=== PATIENT | male | born 1970 | race Caucasian/White ===

== ENCOUNTER → 2017-11-21 | Outpatient (CLI) | payer OTHER ==
--- NOTE | 2017-11-21 17:41 | US ---
EXAMINATION TYPE: US venous doppler duplex LE RT DATE OF EXAM: 11/21/2017 5:30 PM COMPARISON: NONE CLINICAL HISTORY: M25.561 Right knee pain, I80.9 Phlebitis and. Right knee and calf pain SIDE PERFORMED: Right TECHNIQUE: The lower extremity deep venous system is examined utilizing real time linear array sonog isabel with graded compression, doppler sonography and color-flow sonography. VESSELS IMAGED: External Iliac Vein (EIV) Common Femoral Vein Deep Femoral Vein Greater Saphenous Vein * Femoral Vein Popliteal Vein Small Saphenous Vein * Proximal Calf Veins (* superficial vessels) Right Leg: Appears negative for DVT IMPRESSION: Negative exam. No evidence of deep venous thrombosis in the right leg.
== END | disposition home or self-care (01) ==
LOC: RADUSMAIN 16:34
PROVIDERS: ATTEND Orthopaedic Surgery
DX: I80.9 Phlebitis and thrombophlebitis of unspecified site (principal); M25.561 Pain in right knee; M25.461 Effusion, right knee; M17.11 Unilateral primary osteoarthritis, right knee; S83.241A Other tear of medial meniscus, current injury, right knee, initial encounter; M94.261 Chondromalacia, right knee

== ENCOUNTER 2018-02-16 12:37 | Day surgery (SDC) | payer OTHER ==
[2018-02-12 11:23] VITALS: BMI 42.7
[~2018-02-16 12:37] MED LIST: ACETAMINOPHEN TAB 500 MG TAB PO ONE; DEXAMETHASONE SOD PHOSPHATE 10 MG/ML 1 ML VIAL IV ONE; HYDROmorphone 0.5 MG/0.5 ML SYRINGE IVP PRN; LACTATED RINGERS 1,000 ML IV SCH; LIDOCAINE 1% 20 ML VIAL (10MG/ML) FOR IV START INTRADERMA PRN; ONDANSETRON 4 MG/2 ML VIAL IVP ONE; SCOPOLAMINE 1.5MG/72HR PATCH TRANSDERM ONE; TRANEXAMIC ACID 1,000 MG in SODIUM CHLORIDE 0.9% 50 ML IVPB ONE
[2018-02-16] MEDS ORDERED: MIDAZOLAM 2 MG/2 ML VIAL ONE (15:43)
[2018-02-16] MEDS ORDERED: TRANEXAMIC ACID 1,000 MG/10 ML VIAL ONE (15:43)
[2018-02-16] MEDS ORDERED: KETOROLAC 30 MG/ML 1 ML VIAL ONE (15:43)
[2018-02-16] MEDS ORDERED: fentaNYL (PF) 50 MCG/ML 2 ML AMP ONE (15:43)
[2018-02-16] MEDS ORDERED: PROPOFOL 10 MG/ML 20 ML VIAL IV ONE (15:43)
[2018-02-16] MEDS ORDERED: LIDOCAINE 1% INJ 10MG/ML (20 ML MDV) ONE (15:43)
[2018-02-16] MEDS ORDERED: HYDROmorphone (PF) 1 MG/ML ONE (15:43)
[2018-02-16] MEDS ORDERED: SUCCINYLCHOLINE CHLORIDE 100 MG/5 ML SYR IV ONE (15:43)
[2018-02-16] MEDS ORDERED: SODIUM CHLORIDE 0.9% 100 ML BAG ONE (15:43)
[2018-02-16] MEDS ORDERED: LACTATED RINGERS 1,000 ML IV ONE (17:10)
--- NOTE | 2018-02-16 17:52 | P.OP ---
Date of Procedure: 02/16/18 Procedure(s) Performed: PREOPERATIVE DIAGNOSES: 1. Right knee anterior cruciate ligament tear; 2. Medial meniscus tear, bucket handle POSTOPERATIVE DIAGNOSES: 1. Right knee anterior cruciate ligament tear; 2. Medial meniscus tear, chronic bucket handle; 3. 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 Right knee arthroscopically-assisted anterior cruciate ligament reconstruction with soft tissue allograft utilizing Graftlink technique 2. Right knee arthroscopic partial medial meniscectomy (40%) ANESTHESIA: quality assurance: Shoshana Retana PA-C (assistance with: patient positioning, retraction, graft prep, camera operation, reconstruction, irrigation, closure, dressing) COMPLICATIONS: None ESTIMATED BLOOD LOSS: Less than 20 cc TOURNIQUET: 75 minutes DISPOSITION: To post-anesthesia care unit INDICATIONS: Caleb is a 48 year old male with a history of right knee ACL tear and medial meniscus tear. We have discussed different approaches to ACL reconstruction and the decision is for soft tissue allograft reconstruction with possible meniscal repair versus debridement. I have explained the details of this surgery thoroughly and also explained the potential risks and complications, including the relative risks of graft failure. Other risks are inclusive of, but not limited to: bleeding, infection, scarring, discomfort, blood vessel and nerve damage, stiffness, weakness, need for further surgery, failure to relieve symptoms, persistence or worsening of problems, , and other risks. The patient and parents are aware of these risks and agree to proceed with surgery. The consent form has been signed. PROCEDURE: After appropriate consent was obtained, the patient was taken to the operating room and placed supine on the operating table. General anesthesia was initiated. The knee was examined under anesthesia. Medial collateral, lateral collateral and posterior cruciate ligaments were all intact. There was positive pivot shift of 2+ and 4+ mm anterior translation with both Wu and anterior drawer. Full range of motion was noted without crepitus. No effusion or soft tissue swelling was noted. Prepping and draping of the left knee was performed in the usual sterile fashion using ChloraPrep. Care was taken that all pressure points were adequately padded. Leg perez and pneumotourniquet were used. Time-out was called according to [facility] [place] standards, confirming patient identity, surgical procedure, side, and antibiotic administration. Graft preparation took place on the [employer] graft preparation station. Preparation of the graft took place uneventfully. The graft used was a pre- sutured Graftlink allograft. The sutures for passage and fixation of the graft were placed. The graft was then set to 20 pounds of tension on the graft prep board and covered with a sterile saline soaked gauze pad. During the preparation of the graft, arthroscopy commenced. The surgical portals were placed directly next to the patellar tendon medially and laterally. Camera and instruments were carefully inserted into the knee and arthroscopy was performed. The patellofemoral joint showed grade II degenerative changes. No loose bodies in the medial or lateral gutters, quad tendon normal. No plica. Lateral compartment showed normal hyaline cartilage without defect. Meniscus was normal to visualization and probing. No loose bodies were seen within the lateral compartment. Medial compartment was then examined. Obvious chronic-appearing bucket handle meniscus tear with displacement into the notch was seen. The meniscal fragment was not able to be easily reduced indicating chronicity of the tear and the quality of the material itself was poor. Therefore, partial meniscectomy was performed, removing approximately 4 to percent of the meniscus in this step. The remaining meniscal rim was inspected and found to have a horizontal cleavage type tear which appeared stable and so no further resection was performed. Hyaline cartilage of the medial compartment was mildly degenerated and minor chondroplasty was performed using a shaver. The notch of the knee was then inspected. The patient had a complete tear of the ACL at the femoral attachment with no significant remnant remaining. Scar tissue within this region was debrided away with care to avoid injuring the PCL. The notch in this patient was somewhat narrow, and so it was expanded in the lateral direction with a geoff. Only 3 mm of bone was resected from the lateral portion of the notch, just enough to get the guide in.. The soft tissue on the lateral side of the notch was cleared as necessary using a shaver. Next, the femoral socket was created using the [employer] flip cutter guide. The guide was adjusted through the anterolateral portal after careful measurement of the anterior to posterior condylar distance on the lateral notch. A spot approximately between 40 and 50% of this length was chosen and the guide was moved superiorly only as much as to allow for a 2.5 mm back wall. Incision was created on the lateral side of the thigh over the IT band and the guide was placed against the bone. Guide position was adjusted so that there was 20 of anterior elevation in the coronal plane of the femur and 60 in the sagittal plane. Drilling was then performed using the flip cutter drill pin into the knee at the appropriate location. Once the pin position was noted to be satisfactory, the guide was removed and the drill sleeve was tapped into the bone using a mallet. The flip cutter was then deployed and retro-drilling was performed to create a femoral socket of approximately 28 mm. Debris was suctioned out using a shaver. Passing suture was then inserted into the knee joint and carried out through the anteromedial portal. The tibial tunnel was created by the following steps. The retro-cutter aiming guide for the tunnel was placed into the anteromedial portal and onto the cleared central footprint of the [place] ACL. The guide cylinder was placed securely on the tibial cortex. The tibial bone length was measured. The retro- cutter guide pin was then inserted into the tibia to emerge at the mid- posterior aspect of the [place] ACL footprint, approximately 5 mm from the PCL and just anterior to the posterior border of the anterior horn of the lateral meniscus. The pin was noted to be in excellent position. The retro-cutter was then deployed and reverse drilling was performed creating a tibial socket approximately 30 mm in length. No fracture was noted. The intraarticular debris was removed using a shaver. Graft passing suture was placed. The femoral portion of the GraftLink construct was then inserted into the knee joint, guided by the passing suture. The Endobutton was carried through the femoral cortex and flipped, engaging the cortex securely. Approximately 20 mm or so of the graft was then placed into the femoral socket, using the sutures of the Endobutton. In similar fashion, the graft passing suture was placed into the loop and brought out through the tibial tunnel. This brought the tibial ABS sutures along with it. Approximately 20 mm of graft was placed within the tibial tunnel at which point the adjustable button for the tibia was placed on the sutures. The femoral portion of the graft was completely deployed at this point and bottomed out nicely. The adjustable button was confirmed to be on the cortex of the tibia without interposed soft tissue and preliminary tensioning was performed at that point in full extension. No graft impingement was noted. The knee was then taken through range of motion cycling 10 times. There was no significant motion of the graft detected and the femoral and tibial fixation was noted to be solid. Further tightening of the sutures was performed in extension from the tibial side and the knee was cycled 10 more times with final tightening of the sutures at that point. Sutures were then tied together over the button. Knee was then taken through range of motion which was noted to be full. No graft impingement was noted at the roof or sides of the notch. Fluid was removed from the knee and testing was performed. Anterior drawer 0 mm and Wu 0 mm. Negative pivot shift. Tourniquet was deflated. Hemostasis was obtained using cautery and pressure. Graft passing sutures were removed or cut as necessary. Thorough irrigation using antibiotic solution was performed, and portals were closed with 4-0 Monocryl suture. Posterior medial incision for hamstring harvest was closed with 3-0 Vicryl suture in the subcutaneous tissue, followed by 4-0 Monocryl suture in running subcuticular fashion for the skin, followed by Dermabond. Tibial incision was closed with 4-0 Monocryl for the skin. Steri strips were applied. Sterile dressing and light compressive dressing was applied using Webril and JUSTA wrap. Knee immobilizer was applied. Patient tolerated the procedure well and taken to recovery room in stable condition. Sponge and needle counts were correct.
[2018-02-16 18:12] VITALS: TEMP 96.8
[2018-02-16] MEDS ORDERED: diphenhydrAMINE 50 MG/ML 1 ML VIAL IVP ONE (18:23)
[2018-02-16] MEDS ORDERED: HYDROcodone/APAP 10-325MG 1 EACH TAB PO ONE (18:24)
[2018-02-16 19:00] VITALS: BP 149/80; PULSE 85; RESP 18
== END 2018-02-16 20:03 | disposition home or self-care (01) ==
LOC: OR 12:37 → 5MS5E 17:58 → OR 20:03
PROVIDERS: ATTEND Orthopaedic Surgery
DX: M23.221 Derangement of posterior horn of medial meniscus due to old tear or injury, right knee (principal); M23.211 Derangement of anterior horn of medial meniscus due to old tear or injury, right knee; S83.511A Sprain of anterior cruciate ligament of right knee, initial encounter; M25.361 Other instability, right knee; M17.11 Unilateral primary osteoarthritis, right knee; K21.9 Gastro-esophageal reflux disease without esophagitis; H91.90 Unspecified hearing loss, unspecified ear; Z87.891 Personal history of nicotine dependence; F31.9 Bipolar disorder, unspecified; E78.5 Hyperlipidemia, unspecified; F90.9 Attention-deficit hyperactivity disorder, unspecified type; E66.9 Obesity, unspecified; G47.33 Obstructive sleep apnea (adult) (pediatric); Z79.899 Other long term (current) drug therapy; Z68.41 Body mass index [BMI] 40.0-44.9, adult
CPT/HCPCS: 29888; 29881; C1713; J2250; J1200; J1100; J0690; J2405; J2001; J3010; J1885; J1170; J0330; J2704

== ENCOUNTER → 2020-01-22 | Outpatient (CLI) | payer OTHER ==
[2020-01-22 09:50] LABS: HCT 42.9 % (39.0-53.0); HGB 14.8 gm/dL (13.0-17.5); MCH 32.6 pg (25.0-35.0); MCHC 34.5 g/dL (31.0-37.0); MCV 94.5 fL (80.0-100.0); Mean Platelet Volume 7.7; Platelet Count 204 k/uL (150-450); RBC 4.54 m/uL (4.30-5.90); RDW 13.1 % (11.5-15.5); WBC 10.6 k/uL (3.8-10.6)
[2020-01-22 10:54] LABS: Appearance,Urine Clear (Clear); Bilirubin,Urine Negative (Negative); Blood,Urine Negative (Negative); Color,Urine Yellow; Glucose,Urine (UA) Negative (Negative); Ketones,Urine Negative (Negative); Leukocyte Esterase,Urine Negative (Negative); Nitrite,Urine Negative (Negative); Protein,Urine Negative (Negative); Specific Gravity,Urine 1.016 (1.001-1.035); Urobilinogen,Urine <2.0 mg/dL (<2.0)
[2020-01-22 16:57] LABS: African American GFR (CKD) 117.5 (60.0-200.0); Albumin 4.5 g/dL (3.80-4.90); Albumin/Globulin Ratio 1.96 (1.60-3.17); BUN/Creat Ratio 14.44 Ratio (12.00-20.00); Calcium 9.7 mg/dL (8.7-10.3); Chol/HDL Ratio 5.9; Globulin 2.3 g/dL (1.6-3.3); LDL Cholesterol,Calculated 66.2 mg/dL (0.0-131.0); Non-African American GFR(CKD) 101.4 (60.0-200.0); Potassium 4.6 mmol/L (3.5-5.5); Total Bilirubin 0.5 mg/dL (0.2-1.2); Total Protein 6.8 g/dL (6.2-8.2); VLDL Calculation 75.8 mg/dL (5.00-40.00)
[2020-01-22 17:04] LABS: T4, Free (Free Thyroxine) 0.9 ng/dL (0.80-1.80)
[2020-01-22 17:18] LABS: Prostate Specific Antigen 0.3 ng/mL (0.0-2.5)
[2020-01-22 21:30] LABS: Hemoglobin A1C 5.7 % (4.0-6.0)
== END | disposition home or self-care (01) ==
LOC: LABWHC1 08:48
PROVIDERS: ATTEND Family Medicine
DX: Z00.00 Encounter for general adult medical examination without abnormal findings (principal); E66.9 Obesity, unspecified; F31.9 Bipolar disorder, unspecified
CPT/HCPCS: 36415; 80053; 80061; 80164; 81003; 83036; 84153; 84439; 84443; 85027

== ENCOUNTER → 2022-01-28 | Outpatient (CLI) | payer OTHER ==
[2022-01-28 17:51] LABS: HCT 42.8 % (39.6-50.0); HGB 14.4 g/dL (13.0-17.0); MCHC 33.6 g/dL (32.0-37.0); MCV 89.2 fL (80.0-97.0); Mean Platelet Volume 10.7 fL (9.5-12.2); NRBC Per 100 WBC 0 /100 WBCS (0.0-0.0); Platelet Count 231 X 10*3/uL (140-440); RDW 12.2 % (11.5-14.5)
[2022-01-28 18:25] LABS: African American GFR (CKD) 114.3 (60.0-200.0); Anion Gap 12.2 mmol/L (10.00-18.00); BUN/Creat Ratio 19.34 Ratio (12.00-20.00); Blood Urea Nitrogen 17.6 mg/dL (9.0-27.0); Calcium 9.8 mg/dL (8.7-10.3); Carbon Dioxide 25.4 mmol/L (20.0-27.5); HDL Cholesterol 30.6 mg/dL (40.00-60.00); Non-African American GFR(CKD) 98.6 (60.0-200.0); Potassium 4.8 mmol/L (3.5-5.5); Prostate Specific Antigen 0.3 ng/mL (0.00-2.50)
[2022-01-28 18:37] LABS: Chol/HDL Ratio 6.8 Ratio
[2022-01-28 19:48] LABS: Appearance,Urine Clear (Clear); Bilirubin,Urine Negative (Negative); Blood,Urine Negative (Negative); Color,Urine Yellow (Yellow); Ketones,Urine Trace mg/dL (Negative); Nitrite,Urine Negative (Negative); PH, Urine 5.5 (5.0-8.0); Specific Gravity,Urine 1.023 (1.001-1.030); Urobilinogen,Urine 0.2 (0.2,1.0)
== END | disposition home or self-care (01) ==
LOC: LABWHC1 10:50
PROVIDERS: ATTEND Family Medicine
DX: Z00.00 Encounter for general adult medical examination without abnormal findings (principal); E78.5 Hyperlipidemia, unspecified; E66.9 Obesity, unspecified
CPT/HCPCS: 36415; 80048; 80061; 81003; 82306; 83036; 83721; 84153; 84450; 84460; 85027

== ENCOUNTER → 2022-07-07 | Outpatient (CLI) | payer OTHER ==
[2022-07-07 14:26] LABS: ALT 26 U/L (10-49); AST 23 U/L (14-35); Creatine Kinase 432 U/L (35-257); LDL Cholesterol,Calculated 38.8 mg/dL (0.0-131.0)
== END | disposition home or self-care (01) ==
LOC: LABWHC1 07:18
PROVIDERS: ATTEND Family Medicine
DX: E78.5 Hyperlipidemia, unspecified (principal)
CPT/HCPCS: 36415; 80061; 82550; 84450; 84460

== ENCOUNTER → 2022-07-27 | Outpatient (CLI) | payer OTHER | END | disposition home or self-care (01) | LOC: LABWHC1 09:36 | PROVIDERS: ATTEND Family Medicine | DX: E66.9 Obesity, unspecified (principal); F31.9 Bipolar disorder, unspecified; M62.82 Rhabdomyolysis | CPT/HCPCS: 36415; 80164; 82550; 83036 ==

== ENCOUNTER 2023-05-31 10:47 | Day surgery (SDC) | payer OTHER ==
[2023-05-29 15:00] VITALS: BMI 45.1
[~2023-05-31 10:47] MED LIST changes: -ACETAMINOPHEN TAB 500 MG TAB PO ONE; -DEXAMETHASONE SOD PHOSPHATE 10 MG/ML 1 ML VIAL IV ONE; -HYDROmorphone 0.5 MG/0.5 ML SYRINGE IVP PRN; +LIDOCAINE 1% (10MG/ML) FOR IV START INTRADERMA PRN; -LIDOCAINE 1% 20 ML VIAL (10MG/ML) FOR IV START INTRADERMA PRN; -ONDANSETRON 4 MG/2 ML VIAL IVP ONE; -SCOPOLAMINE 1.5MG/72HR PATCH TRANSDERM ONE; -TRANEXAMIC ACID 1,000 MG in SODIUM CHLORIDE 0.9% 50 ML IVPB ONE
[2023-05-31 12:38] VITALS: RESP 16; TEMP 97
[2023-05-31] MEDS ORDERED: METOCLOPRAMIDE 5 MG/ML 2 ML VIAL IVP ONE (12:50)
[2023-05-31] MEDS ORDERED: METOCLOPRAMIDE 5 MG/ML 2 ML VIAL ONE (12:57)
[2023-05-31] MEDS ORDERED: PROPOFOL 10 MG/ML 20 ML VIAL IV ONE (13:33)
[2023-05-31] MEDS ORDERED: LIDOCAINE 1% INJ 10MG/ML (20 ML MDV) ONE (13:33)
--- NOTE | 2023-05-31 13:50 | P.PCN ---
Date of Procedure: 05/31/23 Procedure(s) Performed: BRIEF HISTORY: Patient is a 53-year-old pleasant white male scheduled for an elective colonoscopy as a part of screening for colon cancer. PROCEDURE PERFORMED: Colonoscopy with snare polypectomy PREOPERATIVE DIAGNOSIS: Screening for colon cancer. IV sedation per Anesthesia. PROCEDURE: After informed consent was obtained, the patient, was brought into the endoscopy unit. IV sedation was administered by Anesthesia under continuous monitoring. Digital rectal examination was normal. Initially the Olympus CF-160 flexible video colonoscope was then inserted in the rectum, gradually advanced into the cecum without any difficulty. Careful examination was performed as the scope was gradually being withdrawn. Ileocecal valve and the appendiceal orifice were visualized and appeared normal. Prep was excellent. Mucosa of the cecum, appeared normal. In the ascending colon there was a 3 mm, 5 mm and 1 cm polyp removed by snare polypectomy. In the descending colon there was a 5 mm polyp removed by snare polypectomy. In the sigmoid colon there was a 1. recent meter polyp removed by snare polypectomy. In the rectum there was a 1 cm polyp removed by snare polypectomy. Polypectomy. Retroflexion was performed in the rectum and no lesions were seen. The patient tolerated the procedure well. IMPRESSION: 3 mm, 5 mm and 1 cm polyp in the ascending colon status post polypectomy. 5 mm descending colon polyp status post polypectomy 1.2 cm sigmoid polyp status post polypectomy 1 cm rectal polyp status post polypectomy RECOMMENDATIONS: Findings of this examination were discussed with the patient as well as his family. He was advisefollow with the biopsy results and if the biopsy with adenoma he can have a repeat colonoscopy in 3 years
[2023-05-31 14:13] VITALS: BP 115/57; PULSE 63
== END 2023-05-31 14:25 | disposition home or self-care (01) ==
LOC: ORWHC2ENDO 10:47
PROVIDERS: ATTEND Internal Medicine Gastroenterology
DX: Z12.11 Encounter for screening for malignant neoplasm of colon (principal); D12.4 Benign neoplasm of descending colon; D12.2 Benign neoplasm of ascending colon; D12.5 Benign neoplasm of sigmoid colon; D12.8 Benign neoplasm of rectum; G47.33 Obstructive sleep apnea (adult) (pediatric); F17.200 Nicotine dependence, unspecified, uncomplicated; F32.A Depression, unspecified; F41.9 Anxiety disorder, unspecified; K21.9 Gastro-esophageal reflux disease without esophagitis; E66.01 Morbid (severe) obesity due to excess calories; Z68.41 Body mass index [BMI] 40.0-44.9, adult; Z79.899 Other long term (current) drug therapy
CPT/HCPCS: 88305; 45385; J2765; J2001; J2704

== ENCOUNTER 2023-12-17 01:00 | Emergency (ER) | payer OTHER, BC ==
[2023-12-17 01:08] VITALS: BP 130/72; PULSE 88; RESP 20; TEMP 98.2
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
[2023-12-17] MEDS: DIPH,PERTUS(ACELL)TETVAC-LF 0.5 ML VIAL IM ONE (02:33)
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
== END 2023-12-17 02:29 | disposition left against medical advice (07) ==
LOC: EC 01:00
DX: S09.90XA Unspecified injury of head, initial encounter (principal); Y04.8XXA Assault by other bodily force, initial encounter; F17.200 Nicotine dependence, unspecified, uncomplicated
CPT/HCPCS: 70450; 72125; 99284

== ENCOUNTER → 2024-04-09 | Outpatient (CLI) | payer BC ==
--- NOTE | 2024-04-09 17:59 | CA ---
Transthoracic Echo Report Name: Robert Chavez Age: 54 Gender: M : 1970 Exam Date: 04/09/2024 13:27 Exam Location: [facility] Ht (in): 66 Wt (lb): 270 Ordering Physician: Fortino Núñez DO Attending/Referring Phys: Parvez Newell MD ([id number]) Stationary Engineer Apprentice Sylwia Tinoco RDCS Procedure CPT: Indications: R01.1 Murmur Cardiac Hx: Technical Quality: Fair Contrast 1: Total Dose (mL): Contrast 2: Total Dose (mL): MEASUREMENTS (Male / Female) Normal Values 2D ECHO LV Diastolic Diameter PLAX 5.6 cm 4.2 - 5.9 / 3.9 - 5.3 cm LV Systolic Diameter PLAX 3.5 cm IVS Diastolic Thickness 1.0 cm 0.6 - 1.0 / 0.6 - 0.9 cm LVPW Diastolic Thickness 1.0 cm 0.6 - 1.0 / 0.6 - 0.9 cm LV Relative Wall Thickness 0.3 RV Internal Dim ED PLAX 3.2 cm LVOT Diameter 2.2 cm LA Systolic Diameter LX 3.4 cm 3.0 - 4.0 / 2.7 - 3.8 cm LV Diastolic Volume MOD 4C 104.9 cm??? LV Systolic Volume MOD 4C 42.3 cm??? LV Ejection Fraction MOD 4C 59.7 % LV Cardiac Index MOD 4C 1557.1 cm???/min???m??? LV Diastolic Length 4C 8.6 cm LV Systolic Length 4C 7.2 cm LA Volume 48.4 cm??? 18 - 58 / 22 - 52 cm??? LA Volume Index 19.7 cm???/m??? 16 - 28 cm???/m??? M-MODE Aortic Root Diameter MM 3.7 cm AV Cusp Separation MM 2.5 cm DOPPLER AV Peak Velocity 214.2 cm/s AV Peak Gradient 18.4 mmHg AV Mean Velocity 134.3 cm/s AV Mean Gradient 8.5 mmHg AV Velocity Time Integral 47.4 cm AI Peak Velocity 194.4 cm/s AI Peak Gradient 15.1 mmHg AI Pressure Half Time 919.0 ms LVOT Peak Velocity 120.6 cm/s LVOT Peak Gradient 5.8 mmHg LVOT Velocity Time Integral 24.5 cm LVOT Stroke Volume 92.4 cm??? LVOT Stroke Volume Index 40.7 ml/m??? LVOT Cardiac Index 2298.7 cm???/min???m??? AV Area Cont Eq vti 2.0 cm??? AV Area Cont Eq pk 2.1 cm??? MV Area PHT 3.7 cm??? Mitral E Point Velocity 107.9 cm/s Mitral A Point Velocity 71.2 cm/s Mitral E to A Ratio 1.5 MV Deceleration Time 207.8 ms TR Peak Velocity 247.0 cm/s TR Peak Gradient 24.4 mmHg Right Ventricular Systolic Press 29.4 mmHg FINDINGS Left Ventricle Left ventricular ejection fraction is estimated at 55-60 %. Left ventricular cavity size normal. Left ventricular wall thickness normal. Normal left ventricular wall motion. Right Ventricle Normal right ventricular size and function. Right ventricular systolic pressure within normal limits. Right Atrium Normal right atrial size. No right atrial thrombus or mass seen. Left Atrium Normal left atrial size. No left atrial thrombus or mass present. Mitral Valve Structurally normal mitral valve. No mitral stenosis, regurgitation or prolapse. Aortic Valve No aortic stenosis. Mild aortic regurgitation.aortic valve sclerosis. Not well visualized, cannot exclude bicuspid valve Tricuspid Valve Structurally normal tricuspid valve. Mild tricuspid regurgitation. Pulmonic Valve Structurally normal pulmonic valve. No pulmonic regurgitation. Pericardium No pericardial or pleural effusion. Aorta Normal size aortic root and proximal ascending aorta. CONCLUSIONS 1. Normal left ventricular size and systolic function 2. Calcified aortic valve, not well-visualized, cannot exclude bicuspid valve with mild aortic regurgitation 3. Mild tricuspid regurgitation with no evidence of pulmonary hypertension Previewed by: Dr. Airam Cope MD (Electronically Signed) Final Date: 09 April 2024 17:58
== END | disposition home or self-care (01) ==
LOC: RADECHMAIN 13:05
PROVIDERS: ATTEND Family Medicine
DX: R01.1 Cardiac murmur, unspecified (principal)
CPT/HCPCS: 93306

== ENCOUNTER → 2024-04-09 | Outpatient (CLI) | payer BC, OTHER ==
--- NOTE | 2024-04-09 19:46 | CTL ---
EXAMINATION TYPE: CT Low Dose Lung DATE OF EXAM ORDERED: 04/09/2024 HISTORY: Nicotine dependence, current smoker, 30 pack-year history. Lung cancer screening CT DLP: 87.[address] CTDI: 2.4 mGy Automated exposure control for dose reduction was used. SCREENING VISIT: First screening visit COMPARISON: None TECHNIQUE: Low dose computed tomography scan was performed through the chest at 1 mm thick sections a nd reconstructed images in multiple planes at 1 mm and [address] DIAGNOSTIC QUALITY: Limited, but interpretable FINDINGS: Nodules: Right upper lobe 3.3 mm pulmonary nodule (series 4, image 115). LUNGS: COPD: Severity: None Fibrosis: Severity: None Lymph nodes: None Other findings: None RIGHT PLEURAL SPACE: Effusion: None Calcification: None Thickening: None Pneumothorax: None LEFT PLEURAL SPACE: Effusion: None Calcification: None Thickening: None Pneumothorax: None HEART: Heart Size: Normal Coronary Calcification: None Pericardial Effusion: None OTHER FINDINGS: Upper abdomen: None Bony thorax: DISH of the mid thoracic spine. Supraclavicular region: None Other: None IMPRESSION: Right upper lobe 3.[address] LUNG RAD AND CT CHEST RECOMMENDATION: Lung-Rad 2 Benign Appearance or Behavior: Continue annual sc reening with LDCT in 12 months. S Modifier (other clinically significant findings): None [facility], , 04/09/2024 7:43 PM
== END | disposition home or self-care (01) ==
LOC: RADCTMAIN 13:08
PROVIDERS: ATTEND Family Medicine
DX: Z12.2 Encounter for screening for malignant neoplasm of respiratory organs
CPT/HCPCS: 71271

== ENCOUNTER → 2024-05-27 | Outpatient (CLI) | payer BC ==
[2024-05-27 10:51] VITALS: BP 111/76; PULSE 89; RESP 16; TEMP 98.7
--- NOTE | 2024-05-27 11:27 | P.SLEEP ---
History of Present Illness DATE: 05/27/2024 CONSULTATION/NEW PATIENT EVALUATION HISTORY OF PRESENT ILLNESS/SLEEP-WAKE EVALUATION: 54-year-old gentleman had been evaluated in the sleep center for obstructive sleep apnea hypopnea syndrome and episodes of out of the movements during the sleep. Patient has history of obstructive sleep apnea for about 25 years, which was originally diagnosed in our institution. Patient continued to use his CPAP equipment every night for the whole night. He received his last CPAP unit about 3 years ago. I checked his CPAP unit. Range of the pressure 8-20, average 12.8. Usage is 100% of nights, average 8.7 hours per night. Leak is 8 L/min which is in normal range. Apnea hypopnea index is 1.2 which is normal. SLEEP SCHEDULE: Usually sleep schedule from [id number] PM until 7 AM 7 days a week. FALLING ASLEEP: Patient has difficulties with falling asleep, improved on trazodone. DURING SLEEP: Patient has multiple awakenings from sleep up to 4 times, vivid nightmares and violent movements during the sleep, usually flailing movements. No history of hypnogogical hallucinations, sleep paralysis, or cataplexy. DURING THE DAY/WAKE STATE: Patient may have problems with memory during the day, irritability, anxiety. [place] sleepiness scale is 4. Usually patient does not take naps. PAST MEDICAL HISTORY: Acid reflux, depression. PAST SURGICAL HISTORY: Bilateral knee surgeries for meniscus and ACL problems, UPPP, tonsillectomy. MEDICATIONS: Please see below. SOCIAL HISTORY: Please see below. FAMILY HISTORY: Please see below. REVIEW OF SYSTEMS: Awakenings from sleep with flailing movements, while on treatment with CPAP. No fevers. No double vision. No recent chest pain. No shortness of breath. No abdominal pain. No bleeding episodes. No blood in urine. No seizure episodes. PHYSICAL EXAMINATION: GENERAL: A pleasant patient without any distress. VITAL SIGNS: Please see below, weight 253 pounds, BMI 40.9. HEENT: PERRLA, EOMI. Evaluation of oropharynx showed tongue protrudes midline, low position of soft palate Mallampati 3, no uvula. NECK: Supple. No JVD. Thyroid is not palpable. 19-1/4 inches in circumference. LUNGS: Clear to percussion and to auscultation. Good air exchange. No wheezing or rhonchi. HEART: S1, S2 regular. No murmurs, gallops or rubs. ABDOMEN: Soft and nontender. Bowel sounds are present. No organomegaly appreciated. EXTREMITIES: No clubbing or cyanosis. DIRECTOR OF UNDERGRADUATE ADMISSIONS: Awake, alert, and oriented x3. Cranial nerves 2 to 7 intact. There is no fasciculation or atrophy noted. No focal deficits observed. ASSESSMENT: 1. Obstructive sleep apnea hypopnea syndrome for more than 20 years, patient continued to use CPAP equipment every night for the whole night, low position of soft palate Mallampati 3, extremely wide neck 19-1/4 inches in circumference. Obstructive sleep apnea hypopnea syndrome. 2. Out of during movements during sleep, possibly REM sleep behavioral disorder. 3. Anxiety. 4. Difficulties to initiate sleep secondary to anxiety and psychophysiological insomnia. 5 history of depression. 6 . Status post bilateral knee surgeries for meniscus problems and ACL problems. 7. Status post UPPP. 8. Status post tonsillectomy. PLAN: 1. CPAP titration to be sure that patient does not have any respiratory abnormalities during sleep which could be a trigger factor for some out of dream movements and to check for possible REM sleep behavioral disorder. 2. Patient will continue to use AutoPap every night for the whole night, adjusted PAP unit for automatic start by patient request. 3. Preferable position during sleep on the side. 4. No driving if patient feels any sleepiness. Patient is aware of civil and criminal liability for unsafe driving. 5. Sleep hygiene with regular sleep time for at least 7.5-8 hours. 6. Watching and losing weight. 7. Following plan after reading PAP titration. Thank you very much for referring this patient for consultation. Sincerely, Bear Garcia MD, PhD, FAASM. Diplomat of [place] [employer], Sleep Medicine Board by [place] [employer] [place] [employer] Global Category Manager of [facility] [place] cc: Fortino Núñez MD Past Medical History Past Medical History: GERD/Reflux, Skin Disorder, Sleep Apnea/CPAP/BIPAP Additional Past Medical History / Comment(s): uses CPAP using a cream for rash History of Any Multi-Drug Resistant Organisms: None Reported Past Surgical History: Adenoidectomy, Orthopedic Surgery, Tonsillectomy Additional Past Surgical History / Comment(s): left knee surg., myringotomy & tubes, eye surg. as child Past Anesthesia/Blood Transfusion Reactions: Previous Problems w/ Anesthesia Additional Past Anesthesia/Blood Transfusion Reaction / Comment(s): felt like pulled muscle in chest,neck, & shoulders when woke up after myringotomy surg which was a few years ago. no blood transfusion Past Psychological History: Anxiety, Depression Smoking Status: Current every day smoker Past Alcohol Use History: Occasional Additional Past Alcohol Use History / Comment(s): smoked 1 1/2ppd for 30 yrs., drink every 10-14days Past Drug Use History: None Reported - Past Family History Mother Family Medical History: Cancer Additional Family Medical History / Comment(s): lung Father Family Medical History: Cancer Medications and Allergies Home Medications Medication Instructions Recorded Confirmed Type Divalproex Sodium [Depakote] 500 mg PO BID 02/12/18 05/27/24 History Escitalopram [Lexapro] 20 mg PO DAILY 02/12/18 05/27/24 History Omeprazole [PriLOSEC] 20 mg PO DAILY 02/12/18 05/27/24 History traZODone HCL 50 mg PO HS 02/12/18 05/27/24 History Sennosides-Docusate Sodium 1 tab PO BID #60 tablet 02/16/18 05/31/23 Rx [Senokot-S] Cetirizine HCl 10 mg PO DAILY 05/29/23 05/31/23 History ALPRAZolam [Xanax] 1 mg PO PRN 05/27/24 History Allergies Allergy/AdvReac Type Severity Reaction Status Date / Time No Known Allergies Allergy Verified 12/17/23 01:08 Physical Exam Vitals: Vital Signs Temp Pulse Resp BP Pulse Ox 05/27/24 10:50 98.7 F 89 16 111/76 96 Sleep Note - Sleep Data ESS Total: 4 - Sleep Note Sleep Note: Temperature: 98.7 F Pulse Rate: 89 Respiratory Rate: 16 Blood Pressure: 111/76 SpO2: 96 Height: Weight: BMI: Neck Circumference: 19.2
== END ==
LOC: 3 N SLEEP 10:17
PROVIDERS: ATTEND Internal Medicine
DX: G47.33 Obstructive sleep apnea (adult) (pediatric) (principal); G47.52 REM sleep behavior disorder; F41.9 Anxiety disorder, unspecified; F32.A Depression, unspecified; F51.04 Psychophysiologic insomnia; Z98.890 Other specified postprocedural states; Z90.89 Acquired absence of other organs; Z87.891 Personal history of nicotine dependence
CPT/HCPCS: 99211

== ENCOUNTER 2024-06-11 19:42 | Outpatient (CLI) | payer BC ==
--- NOTE | 2024-06-12 14:34 | P.PCN ---
Description of Procedure: CLINICAL: Titration with positive air pressure has been done for correction of respiratory abnormalities during sleep. DESCRIPTION OF PROCEDURE: The standard montage for clinical polysomnography included the electroencephalogram, the electrocardiogram, the mentalis surface electromyography and Lead II cardiography. The respiratory battery consisted of measurements of nasal /buccal air flow, pressure transducer measurements from the nose, thoracic and /or abdominal effort and intercostal surface electromyography. Video monitoring has been done to check for any parasomnia events. Nocturnal oxyhemoglobin saturations were obtained by finger oximetry. Step-espinal titration with positive airway pressure was utilized to control respiratory events. Raw data of sleep recording has been reviewed and is adequate. RESULTS: Sleep efficiency was decreased to 70.3%. Latency to sleep onset was significantly prolonged to 105.5 minutes.]. Sleep architecture showed stage N1 was short 2.1%, Delta sleep was absent 0%, REM sleep was extremely high 67.0%. Heart rate was minimum 55 BPM, maximum 66 BPM, average 61 BPM. EMG showed 22.1 periodic limb movements per hour with 1.4 micriarousals per hour. PAP titration have been done with CPAP up to the pressure 11 cm H2O. The best results were at the pressure 11 cm H2O. Apnea hypopnea index reduced to 0. IMPRESSION: 1. Obstructive sleep apnea hypopnea syndrome on controle with PAP treatment. 2. Significant periodic limb movements have been documented. Please see other impressions from consultation. PLAN: 1. The patient will have treatment with positive air pressure equipment with the level of pressure AutoPAP 5-12 cm H2O and should use it every night for the whole night. 2. Watching and losing weight. 3. Sleep hygiene with regular time in bed for at least 8 hours. 4. No driving if feeling any sleepiness. 5. I will see the patient for follow up visit to explain the results of the test, recommendations, check compliance with treatment and make any necessary adjustment related to mask fitting, pressure and humidification. 6. Please check iron profile including ferritin level. Low level of iron may increase risk for periodic limb movements Thank you very much for allowing me to participate in the management of your patient. Sincerely, Bear Garcia MD, PhD, FAASM Diplomat of [place] [employer] Sleep Medicine Board of [place] [employer] Worker of [facility] [place] cc: Fortino Núñez DO
== END 2024-06-12 05:45 | disposition home or self-care (01) ==
LOC: 3 N SLEEP 19:42
PROVIDERS: ATTEND Internal Medicine
DX: G47.33 Obstructive sleep apnea (adult) (pediatric) (principal); G47.61 Periodic limb movement disorder; Z87.891 Personal history of nicotine dependence
CPT/HCPCS: 95811